=== PATIENT | female | born 1985 | race African-American/Black ===

== ENCOUNTER 2017-04-08 02:26 | Emergency (ER) | payer BC ==
[~2017-04-08] VITALS: Ht 162.6 cm; Wt 101.8 kg
[2017-04-08 06:32] VITALS: BP 126/72
== END 2017-04-08 06:32 | disposition home or self-care (01) ==
LOC: ER 02:26
DX: R20.9 Unspecified disturbances of skin sensation (principal)
CPT/HCPCS: 72131; 99284